=== PATIENT | male | born 1955 ===

== ENCOUNTER → 2018-11-12 | Outpatient (REF) | payer BC ==
[2018-11-12 12:33] LABS: HEMATOCRIT 32.7 % (39.0-50.0); HEMOGLOBIN 9.7 g/dl (14.0-18.0); IMMATURE GRANULOCYTES 0.3 % (0.0-5.0); MEAN CELL VOLUME 83.8 fL CALC (80.0-100.0); MEAN CORPUSCULAR HGB 24.9 pG CALC (26.0-32.0); MEAN CORPUSCULAR HGB CONC 29.7 g/L CALC (32.0-36.0); NEUT# 5.85 thou/uL (1.82-7.42); RED BLOOD COUNT 3.9 mill/uL (4.70-6.10); RED CELL DISTRI WIDTH 18.6 % (11.5-15.5)
[2018-11-12 12:46] LABS: ALKALINE PHOSPHATASE 118 u/l (38-126); ANION GAP 12 (6-22 (CALC)); BILIRUBIN, TOTAL 0.7 mg/dL (0.0-1.4); BUN 13 mg/dL (8-23); BUN/CREATININE RATIO 15 (12-20 (CALC)); C-REACTIVE PROTEIN 4.2 mg/dL (0-0.9); CARBON DIOXIDE 26 mmol/l (22-30); CHLORIDE 103 mmol/l (95-108); CREATININE 0.9 mg/dL (0.7-1.3); GFR > 60 ML/MIN (>=60 (CALC)); GFR FOR AFR.AMER. > 60 ML/MIN (>=60 (CALC)); POTASSIUM 4.8 mmol/l (3.5-5.1); SGOT/AST 16 u/l (19-48); SODIUM 137 mmol/l (137-146); TOTAL PROTEIN 6.4 g/dL (6.3-8.2)
[2018-11-12 12:47] LABS: ALBUMIN 2.9 g/dL (3.2-5.0)
== END | disposition home or self-care (01) | DRG 541 ==
LOC: LABSPEC 12:23
PROVIDERS: ATTEND Orthopaedic Surgery Orthopaedic Trauma
DX: M86.8X6 Other osteomyelitis, lower leg (principal)

== ENCOUNTER → 2018-11-26 | Outpatient (REF) | END | disposition home or self-care (01) | DRG 541 | LOC: LABSPEC 14:30 | PROVIDERS: ATTEND Orthopaedic Surgery Orthopaedic Trauma | DX: M86.60 Other chronic osteomyelitis, unspecified site (principal); Z79.2 Long term (current) use of antibiotics ==

== ENCOUNTER → 2018-12-03 | Outpatient (REF) | payer BC ==
[2018-12-03 15:34] LABS: HEMATOCRIT 38.9 % (39.0-50.0); HEMOGLOBIN 11.4 g/dl (14.0-18.0); IMMATURE GRANULOCYTES 0.3 % (0.0-5.0); MEAN CELL VOLUME 80.5 fL CALC (80.0-100.0); MEAN CORPUSCULAR HGB 23.6 pG CALC (26.0-32.0); MEAN CORPUSCULAR HGB CONC 29.3 g/L CALC (32.0-36.0); NEUT# 4.93 thou/uL (1.82-7.42); RED BLOOD COUNT 4.83 mill/uL (4.70-6.10); RED CELL DISTRI WIDTH 17.8 % (11.5-15.5)
[2018-12-03 15:49] LABS: ALBUMIN 3.6 g/dL (3.2-5.0); ALKALINE PHOSPHATASE 178 u/l (38-126); ANION GAP 17 (6-22 (CALC)); BILIRUBIN, TOTAL 0.3 mg/dL (0.0-1.4); BUN 20 mg/dL (8-23); BUN/CREATININE RATIO 17 (12-20 (CALC)); C-REACTIVE PROTEIN 1.5 mg/dL (0-0.9); CARBON DIOXIDE 22 mmol/l (22-30); CHLORIDE 104 mmol/l (95-108); CREATININE 1.2 mg/dL (0.7-1.3); GFR > 60 ML/MIN (>=60 (CALC)); GFR FOR AFR.AMER. > 60 ML/MIN (>=60 (CALC)); POTASSIUM 4.6 mmol/l (3.5-5.1); SGOT/AST 27 u/l (19-48); SODIUM 138 mmol/l (137-146); TOTAL PROTEIN 6.8 g/dL (6.3-8.2)
== END | disposition home or self-care (01) | DRG 541 ==
LOC: LABSPEC 14:36
PROVIDERS: ATTEND Orthopaedic Surgery Orthopaedic Trauma
DX: M86.9 Osteomyelitis, unspecified (principal)